=== PATIENT | female | born 2000 | race Caucasian/White ===

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

== ENCOUNTER 2024-07-02 07:32 | Outpatient (CLI) | payer MEDICAID ==
[2024-07-02] VITALS (20 sets, daily range): BP systolic 92–133; BP diastolic 48–91; PULSE 69–139
== END 2024-07-02 23:59 | disposition home or self-care (01) ==
LOC: CARD DIAG 07:32
PROVIDERS: ATTEND Physician Assistant
DX: I95.1 Orthostatic hypotension (principal); R00.0 Tachycardia, unspecified
CPT/HCPCS: 93660